=== PATIENT | male | born 1995 | race Caucasian/White ===

== ENCOUNTER 2020-06-04 18:12 | Emergency (ER) | payer OTHER ==
[2020-06-04] MEDS ORDERED: VENTOLIN HFA 66.7 GM INH (22:01)
[2020-06-04] MEDS ORDERED: AEROCHAMBER1 EA XX (22:01)
== END 2020-06-04 22:20 | disposition home or self-care (01) ==
LOC: ER1 18:12
DX: R06.00 Dyspnea, unspecified (principal); R05 Cough; Z20.822 Contact with and (suspected) exposure to COVID-19; Z91.010 Allergy to peanuts
CPT/HCPCS: 0240U; 71045; 94664; 99283

== ENCOUNTER 2020-07-23 12:34 | Emergency (ER) | payer OTHER ==
[~2020-07-23 12:34] MED LIST: AEROCHAMBER1 EA XX; VENTOLIN HFA 66.7 GM INH
[2020-07-23 13:11] LABS: HEMOGLOBIN 15.3 gm/dl (14.0-17.5); RED BLOOD COUNT 5.04 M/UL (4.20-5.50); WHITE BLOOD COUNT 11.4 K/UL (4.5-11.0)
[2020-07-23 13:56] LABS: BUN/CREATININE RATIO 11 (0-10)
[2020-07-23] MEDS ORDERED: AUGMENTIN 875-1 EACH PO (16:26)
[2020-07-23] MEDS ORDERED: IBUPROFEN800 MG PO (16:26)
[2020-07-23] MEDS ORDERED: ZOFRAN ODT 4 MG4 MG PO (16:26)
[2020-07-23] MEDS ORDERED: BENTYL 10MG CAP10 MG PO (16:26)
[2020-07-23] MEDS ORDERED: FLAGYL500 MG PO (16:26)
== END 2020-07-23 16:36 | disposition home or self-care (01) ==
LOC: ER1 12:34
PROVIDERS: Emergency Medicine
DX: K52.9 Noninfective gastroenteritis and colitis, unspecified (principal)
CPT/HCPCS: 71045; 76705; 80053; 81001; 83605; 83690; 85025; 96374; 96375; 96376; 99284; J2270; J2405; J7030; Q9967

== ENCOUNTER 2020-10-22 20:54 | Emergency (ER) | payer OTHER ==
[~2020-10-22 20:54] MED LIST changes: +AUGMENTIN 875-1 EACH PO; +BENTYL 10MG CAP10 MG PO; +FLAGYL500 MG PO; +IBUPROFEN800 MG PO; +ZOFRAN ODT 4 MG4 MG PO
[2020-10-22] MEDS ORDERED: MAGIC MOUTHWASH PO (21:42)
== END 2020-10-22 22:19 | disposition home or self-care (01) ==
LOC: ER1 20:54
DX: K12.0 Recurrent oral aphthae (principal)
CPT/HCPCS: 99282

== ENCOUNTER 2020-12-15 16:24 | Emergency (ER) | payer OTHER ==
[~2020-12-15 16:24] MED LIST changes: +MAGIC MOUTHWASH PO
[2020-12-15 17:44] LABS: HEMOGLOBIN 13.2 gm/dl (14.0-17.5); RED BLOOD COUNT 4.34 M/UL (4.20-5.50)
[2020-12-15 18:13] LABS: BUN/CREATININE RATIO 13 (0-10)
== END 2020-12-15 19:15 | disposition home or self-care (01) ==
LOC: ER1 16:24
PROVIDERS: Physician Assistant
DX: T63.091A Toxic effect of venom of other snake, accidental (unintentional), initial encounter (principal); Z23 Encounter for immunization
CPT/HCPCS: 80053; 82550; 83874; 85025; 85384; 85610; 85730; 90471; 90715; 99283